=== PATIENT | female | born 2005 | race Hispanic/Latino ===

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

== ENCOUNTER 2024-05-19 21:07 | Emergency (ER) | payer OTHER, SELFPAY ==
[2024-05-19] MEDS ORDERED: Naproxen 500 MG TAB ONE (23:52)
== END 2024-05-20 00:10 | disposition home or self-care (01) ==
LOC: ERS 21:07
DX: S93.401A Sprain of unspecified ligament of right ankle, initial encounter (principal); V00.111A Fall from in-line roller-skates, initial encounter